=== PATIENT | female | born 1965 | race Caucasian/White ===

== ENCOUNTER 2018-03-22 12:25 | Outpatient (CLI) | payer OTHER ==
--- NOTE | 2018-03-22 20:26 | RAD ---
LEFT SHOULDER THREE VIEWS: 03/22/18 No fracture, dislocation, or AC joint widening was seen. There is no particular arthritic change. The visible adjacent ribs appeared normal. IMPRESSION: No significant finding. POS: HOME
== END 2018-03-22 12:26 | disposition home or self-care (01) ==
LOC: BURRAD 12:25
DX: M25.512 Pain in left shoulder (principal)